=== PATIENT | female | born 1955 | race Caucasian/White ===

== ENCOUNTER 2017-01-30 16:49 | Emergency (ER) | payer MEDICARE, OTHER ==
[~2017-01-30] VITALS: Ht 160 cm; Wt 47.6 kg
[~2017-01-30 16:49] MED LIST: ASPI-875
--- NOTE | 2017-01-30 16:50 | NUR ---
PRESENT SELF TO ED FOR RIGHT HAND PAIN/SWELLING SINCE YESTERDAY, [place], 05/10. DENIES TRAUMA. PATIENT IS AFEBRILE, VSS. PENDING MD BARROSO
--- NOTE | 2017-01-30 17:16 | NUR ---
MD WATTERS AT
[2017-01-30] MEDS ORDERED: TRAMADOL HCL 50 MG TABLET ONE (17:26)
[2017-01-30] MEDS ORDERED: TRAMADOL HCL 50 MG TABLET PO ONE (17:30)
--- NOTE | 2017-01-30 17:32 | NUR ---
MEDICATED PATIENT ORDERED
[2017-01-30 18:25] VITALS: BP 127/77
--- NOTE | 2017-01-30 18:25 | NUR ---
Patient discharged to home in stable condition. Written and verbal after care instructions given. Patient verbalizes understanding of instruction.
== END 2017-01-30 18:27 | disposition home or self-care (01) ==
LOC: ER 16:50
DX: L03.011 Cellulitis of right finger (principal); H40.9 Unspecified glaucoma; M85.80 Other specified disorders of bone density and structure, unspecified site; Z79.82 Long term (current) use of aspirin; F17.210 Nicotine dependence, cigarettes, uncomplicated; Z88.1 Allergy status to other antibiotic agents
CPT/HCPCS: 73120; 99284; 99406; A4606; Z7610

== ENCOUNTER 2021-01-25 06:25 | Emergency (ER) | payer MEDICARE ==
[~2021-01-25] VITALS: Ht 157.5 cm; Wt 45.4 kg
--- NOTE | 2021-01-25 06:36 | NUR ---
AT BED SIDE
--- NOTE | 2021-01-25 06:37 | NUR ---
PRESENTED TO THE ER FOR C/O ABDOMINAL PAIN AND NAUSEA SINCE LAST NIGHT, DENIED HEMATURIA OR DYSURIA. NO FEVER OR CHILLS. NO DIARRHEA OR CONSTIPATION. PT WAS ASSISTED TO BED 2 ER AND WAS PLACED ON A MONITOR. VSS. WILL CONT TO MONITOR
[2021-01-25] MEDS: IV NS 0.9% 500 ML BAG IV ONE (06:54)
[2021-01-25] MEDS: HYDROMORPHONE INJ 2 MG/ML DISP.SYRIN IV ONE (06:55)
[2021-01-25] MEDS: FAMOTIDINE/PF INJ 20 MG/2 ML VIAL IV ONE (06:55)
[2021-01-25] MEDS: ONDANSETRON HCL/PF 4 MG/2 ML VIAL IVP ONE (06:55)
--- NOTE | 2021-01-25 06:59 | NUR ---
PT WAS TAKEN TO CT
[2021-01-25] MEDS ORDERED: MORPHINE SULFATE INJ 2 MG/ML DISP.SYRIN IV ONE (07:00)
[2021-01-25 07:07] LABS: BASOPHILS % (AUTO) 0.8 % (0.0-2.0); EOSINOPHILS % (AUTO) 4.3 % (0.0-6.0); HEMATOCRIT 40 % (33-45); HEMOGLOBIN 12.2 g/dL (11.5-14.8); LYMPHOCYTES # (AUTO) 0.9 /CMM (0.8-4.8); LYMPHOCYTES % (AUTO) 14.6 % (20.0-44.0); MEAN CORPUSCULAR HGB CONC 31 g/dl (31.0-36.0); MEAN CORPUSCULAR VOLUME 72 fL (82-100); MONOCYTES # (AUTO) 0.4 /CMM (0.1-1.30); MONOCYTES % (AUTO) 7.4 % (2.0-12.0); NEUTROPHILS # (AUTO) 4.4 /CMM (1.8-8.9); NEUTROPHILS % (AUTO) 72.9 % (43.0-81.0); PLATELET COUNT (AUTO) 289 /CMM (150-450); RED BLOOD CELL COUNT(AUTO) 5.48 MIL/uL (4.0-5.2)
[2021-01-25 07:21] LABS: ALANINE AMINOTRANSFERASE 20 U/L (12-78); ALBUMIN 4.3 g/dL (3.4-5.0); ALKALINE PHOSPHATASE 116 U/L (46-116); ASPARTATE AMINOTRANSFERASE 20 U/L (15-37); BILIRUBIN,DIRECT 0.1 mg/dL (0.0-0.2); BILIRUBIN,TOTAL 0.4 mg/dL (0.2-1.0); CALCIUM, SERUM 9.4 mg/dL (8.5-10.1); CARBON DIOXIDE 27 mmol/L (21-32); CHLORIDE 104 mmol/L (98-107); CREATININE 0.8 mg/dL (0.6-1.3); GLUCOSE 115 mg/dL (74-106); LIPASE 168 U/L (73-393); POTASSIUM 4.3 mmol/L (3.5-5.1); SODIUM SERUM 140 mmol/L (136-145); TOTAL PROTEIN, SERUM 7.7 g/dL (6.4-8.2); UREA NITROGEN, BLOOD 19 mg/dL (7-18)
[2021-01-25] MEDS ORDERED: HYDR-3980 PO (07:42)
--- NOTE | 2021-01-25 07:54 | NUR ---
CALLED SON DONALDO ON HIS WAY TO GET PT.
--- NOTE | 2021-01-25 08:12 | NUR ---
PATIENT A/OX4, STATED PAIN HAS IMPROVED. BREATHING EVEN AND UNLABORED, NO SOB NOTED, AMBULATORY WITH STEADY GAIT. IV removed. Catheter intact and site benign. Pressure and 4x4 applied to site. No bleeding noted. Patient discharged to home in stable condition. Written and verbal after care instructions given. Patient verbalizes understanding of instruction.
[2021-01-25 08:13] VITALS: BP 159/96
== END 2021-01-25 08:14 | disposition home or self-care (01) ==
LOC: ER 06:27
DX: K29.00 Acute gastritis without bleeding (principal); F17.200 Nicotine dependence, unspecified, uncomplicated; Z98.890 Other specified postprocedural states; Z88.1 Allergy status to other antibiotic agents; Z79.82 Long term (current) use of aspirin
CPT/HCPCS: 36415; 71045; 74176; 80048; 80076; 83690; 84484; 85025; 93005; 96361; 96374; 96375; 99284; J1170; J2405; J7030